=== PATIENT | male | born 1960 | race Caucasian/White ===

== ENCOUNTER → 2022-12-02 13:52 | Outpatient (REF) | payer OTHER, SELFPAY ==
--- NOTE | 2022-12-02 13:59 | CA_ITS ---
Transthoracic Echocardiogram Patient (Last, First, Middle): Denis Tubbs, Gender: Male Date of : 1960 Age: 62 Procedure Date: 12/02/2022 Procedure Type: Transthoracic Echocardiogram Location: [facility] Height: 170.18 cm Weight: 52.16 kg BSA: 1.60 m2 Heart Rate: 56 bpm BP: 102 / 60 mmHg Circulating Process Inspector: SB Referring MD: Maria Guadalupe Stephenson MD Document Control Associate: Ross Dawson MD Symptoms: CARDIAC MURMUR R01/ Study Quality: Adequate ECG Rhythm: Bradycardia Conclusions: - 1. Normal systolic function 2. Bicuspid aortic valve with moderate aortic stenosis with mild aortic regurgitation 3. Severe ascending aortic aneurysm 4. Normal RVSP 5. No pericardial effusion. Findings Left Ventricle Normal left ventricular size, thickness, and systolic function. The visually estimated ejection fraction is between 55-60%. Spectral Doppler is indicative of a normal filling pattern. Right Ventricle Normal right ventricular cavity size and systolic function. Atria Both atria are normal in size. There is no evidence of interatrial shunt. Aortic Valve There is a bicuspid aortic valve. There is moderate thickening of the aortic valve. There is moderate aortic valve stenosis. There is mild aortic valve regurgitation. Mitral Valve There is mild anterior mitral leaflet thickening. There is no mitral valve regurgitation. There is no mitral valve stenosis. Pulmonic Valve The pulmonic valve is likely normal. Tricuspid Valve Normal tricuspid valve structure. There is trace tricuspid valve regurgitation. The right ventricular systolic pressure is normal. The right ventricular systolic pressure is 16 mmHg. Normal right atrial pressure. There is no evidence of pulmonary hypertension. Great Vessels The pulmonary artery was not well visualized. There is severe dilatation of the ascending aorta measuring 5.50 cm. Venous The inferior vena cava is normal in size and collapses greater than 50% with inspiration. Pericardium/Pleural There is no evidence of pericardial effusion. Prior Study Comparison No prior study available for comparison. Finding discussed with PCP's office Measurements 2D Linear Measurements IVSd: 0.99 0.6-0.9/0.6-1.0 cm LVIDd: 4.85 3.9-5.3/4.2-5.9 cm LVIDd Index: 3.03 2.4-3.2/2.2-3.1 cm/m2 LVIDs: 3.22 2.0-3.6 cm LVPWd: 0.74 0.7-1.1 cm LA Diam: 3.20 2.7-3.8/3.0-4.0 cm LAIDs Index: 2.00 1.5-2.3 cm/m2 LV Mass: 177.77 67-162/88-224 g LV Mass Index: 111.11 43-95/49-115 g/m2 LVOT Diam: 2.60 3.0+(-)1.3 cm 2D Systolic Function EF 4C: 55.00 >55% EF 2C: 59.40 >55% EF BiP: 55.80 >55% Mitral Valve MV Pk E: 0.56 MV PK A: 0.54 MV Decel Time: 132.00 E/A: 1.00 E'Lateral: 9.14 E'Medial: 5.22 E/E' Med: 10.70 E/E' Lat: 6.10 PHT: 39.00 MVA PHT: 5.64 Decel Kenton: 4.21 Aortic Valve AoV Pk Leonides: 2.63 AoV Mn Leonides: 1.98 AoV VTI: 0.62 AoV Pk Grad: 28.00 Aov Mn Grad: 17.00 ARPITA Cont.VTI: 1.34 AI Pk Leonides: 4.18 AI Kenton: 1.68 LVOT LVOT Pk Leonides: 0.70 LVOT Mn Leonides: 0.48 LVOT VTI: 0.16 LVOT Pk Grad: 2.00 LVOT Mn Grad: 1.00 LVOT Diam: 2.60 LVOT Area: 5.31 Diastolic Function MV Pk E: 0.56 MV Pk A: 0.54 E/A: 1.00 E'Medial: 5.22 E/E' Med: 10.70 E' Laterial: 9.14 E/E' Lat: 6.10 Right Ventricle TAPSE (mm): 15.10 TVS' Leonides: 7.62 Tricuspid Valve TR Pk Leonides: 1.81 TR Pk Grad: 13.00 RA Press: 3.00 RVSP: 16.00 Great Vessels Aorta Sinus of Valsalva: 4.30 2.0-3.5 cm Ao Asc: 5.50 2.1-3.4 cm Ao Arch: 2.60 Pulmonary Veins Pulm Vein S/D 2.10 Pulmonary Valve PV Pk Leonides: 0.83 Peak PV Grad: 3.00 Updated in Other Vendor System with Status of Final Ross Dawson MD electronically signed on 12/03/2022 12:39:24 PM with status of Final
== END ==
LOC: HO.CARD 13:52
PROVIDERS: PCP Family Medicine; Visit Provider Family Medicine
DX: R01.1 Cardiac murmur, unspecified (principal)
CPT/HCPCS: 93306

== ENCOUNTER → 2022-12-02 13:59 | Outpatient (BNV) | payer OTHER, SELFPAY | PROVIDERS: PCP Family Medicine; Visit Provider Internal Medicine Cardiovascular Disease | DX: I35.2 Nonrheumatic aortic (valve) stenosis with insufficiency (principal) | CPT/HCPCS: 93306 ==

== ENCOUNTER 2022-12-03 12:50 | Outpatient (REF) | payer OTHER, SELFPAY ==
[2022-12-03 14:54] LABS: Hematocrit 38.4 % (42.0-52.0); Hemoglobin 12.9 g/dl (14.0-18.0); Mean Corpuscular HGB Conc 33.6 g/dl (31.0-36.0); Mean Corpuscular Hemoglobin 32.5 pg (27.0-33.0); Mean Corpuscular Volume 96.7 fL (80.0-98.0); Mean Platelet Volume 9.4 fL (9.4-12.4); Platelet Count 217 X10*3/uL (160-400); Red Blood Count 3.97 X10*6/uL (4.60-5.80); Red Cell Distribution Width 12.7 % (11.0-16.0); White Blood Count 4.5 X10*3/uL (4.8-10.8)
[2022-12-03 14:58] LABS: INTERNATIONAL NORM RATIO 0.9 (0.9-1.1); Prothrombin Time 11.1 SEC (11.1-13.3)
[2022-12-03 16:12] LABS: Anion Gap 17 (12-20); Blood Urea Nitrogen 14 mg/dL (9-16); Carbon Dioxide 26 mmol/L (22-29); Chloride 103 mmol/L (96-108); Estimated Glomerular Filt Rate > 60; Glucose Random 97 mg/dL (60-115); Potassium 4.5 mmol/L (3.3-5.1); Sodium 141 mmol/L (135-145)
== END 2022-12-03 12:51 | disposition home or self-care (01) ==
LOC: HO.LAB 12:50
PROVIDERS: PCP Family Medicine; Visit Provider Internal Medicine Cardiovascular Disease
DX: I71.21 Aneurysm of the ascending aorta, without rupture (principal); Q23.1 Congenital insufficiency of aortic valve
CPT/HCPCS: 36415; 80048; 85027; 85610; 93005; 99202

== ENCOUNTER 2022-12-03 12:50 | Outpatient (AMB) | payer OTHER, SELFPAY ==
[2022-12-03 12:58] VITALS: BP 110/74; PULSE 65; BMI 17.6
--- NOTE | 2022-12-03 12:58 | A.OFFVIS_ITS ---
Intake Vital Signs 12/03/22 12:58 Height 5 ft 7 in Weight 112 lb 6.972 oz BMI 17.6 BP 110/74 Blood Pressure Location Lt brachial Pulse 65 Intake Visit Reasons: new abnormal echo with ekg Intake Note: New patient abnormal echo with ekg feeling good Clinical Laboratory Technician Required: No Allergies No Known Allergies Allergy (Verified 12/03/22 13:11) Medication List - Last Reconciled 12/03/22 by Ross Dawson MD aspirin (Ecotrin Low Strength) 81 mg PO DAILY Bacillus coagulans (Probiotic (B. coagulans)) cells PO cholecalciferol (vitamin D3) 50 mcg PO DAILY diphenhydramine HCl (NightTime Sleep Aid (diphenhydramine)) 25 mg PO BEDTIME PRN lysine (L-Lysine) 500 mg PO DAILY multivitamin 1 tab PO DAILY valerian root 500 mg PO BEDTIME PRN HPI HPI Comments History of Present Illness Details Thank you for referring Ab in cardiology consultation today for a scending aortic aneurysm noted by echocardiogram from yesterday. He is accompanied by his . Patient recently was referred for an echocardiogram as an outpatient for noted systolic murmur. Echocardiogram was consistent with severe dilated ascending aorta at 5.5 cm bicuspid aortic valve with moderate aortic stenosis and mild aortic regurgitation. He was referred here for further evaluation management. He is very active and denies any cardiac symptoms. He has never had any prior cardiac issues. He said he is known to have a murmur since his childhood. He denies any symptoms of exertional chest pain or shortness of breath. Denies any symptoms of palpitations, lightheadedness, syncope. [facility] Medical History Ascending aortic aneurysm Bicuspid aortic valve Surgical History History of photorefractive keratectomy (PRK) Hx of hernia repair Shoulder pain with history of repair of rotator cuff Family History Father Cancer Alzheimer disease Mother Stroke Paternal Grandmother CAD (coronary artery disease) Social History Patient Tobacco Use Status: Never used Tobacco Review of Systems Const Denies chills, Denies daytime sleepiness, Denies fatigue, Denies fever(s), Denies frequent falls, Denies poor appetite, Denies snoring, Denies stops breathing during sleep, Denies weakness, Denies weight gain and Denies weight loss Eyes Denies loss of vision ENT Denies dizziness and Denies hearing loss Card Denies chest pain, Denies claudication, Denies leg edema, Denies lightheadedness, Denies palpitations, Denies dyspnea, Denies dyspnea on exertion and Denies orthopnea Resp Denies cough, Denies excessive phlegm production, Denies dyspnea, Denies dyspnea on exertion, Denies snoring and Denies wheezing GI Denies abdominal pain, Denies hematochezia, Denies change in bowel habits, Denies nausea and Denies vomiting Denies dysuria and Denies urinary frequency Musc Denies arthralgias, Denies muscle weakness, Denies numbness and Denies other (frequent falls) Skin/Breast Denies nail changes and Denies rash Neuro Denies Abnormal speech present, Denies dizziness, Denies frequent falls, Denies loss of vision, Denies memory loss, Denies numbness and Denies weakness Psych Denies depression and Denies memory loss Endo Denies fatigue and Denies palpitations Berto/Lymph Reports easy bruising and Reports other (anemia) Aller/Immun Denies wheezing Physical Exam Vital Signs: Last Vital Signs Pulse 65 12/03/22 12:58 BP 110/74 12/03/22 12:58 BMI result Body Mass Index 17.6 Const General: cooperative, comfortable, no acute distress, alert, awake and Physically active Nutritional Appearance: thin Orientation/consciousness: patient oriented x3 Limitations: no limitations HEENT Head: Yes normocephalic and Yes atraumatic Neck Neck: Yes trachea midline, Yes supple and Yes no JVD Resp Effort & Inspection: normal respiratory effort Auscultation: clear to auscultation bilaterally Cardio Jugular venous distension: no JVD Palpation: normal PMI Rate: regular rate Rhythm: regular rhythm Heart sounds: S1 normal heart sound present, S2 normal heart sound present, Clicking heart sound present, no gallops and Murmur heart sound present systolic mid, decrescendo and crescendo GI Auscultation: normal bowel sounds Skin General skin exam: no rashes or lesions noted Neuro General: patient oriented x3 and no focal motor deficits Speech: No Abnormal speech present Extrem General: Yes no clubbing, cyanosis or edema Psych Appearance: grossly normal Office Procedures EKG Details: EKG shows normal sinus rhythm with voltage criteria for LVH 58835-[id number], Complete Assessment & Plan Assessment & Plan (1) Ascending aortic aneurysm: Code(s): I71.21 - Aneurysm of the ascending aorta, without rupture Plan: Large ascending aortic aneurysm which is at the size to repair surgically. This was discussed with him. Most likely etiology is bicuspid aortic valve. This was discussed with him. Need for surgery to reduce risk of acute aortic syndrome and related morbidity mortality was discussed with him. Approach was discussed with him. Will require cardiac catheterization prior to this approach we will recall so require concomitant aortic valve replacement. See below. We discussed the risks, benefits, alternatives of procedure. Understands agrees. Refer him to [facility] to . Meanwhile will start him on low-dose aspirin therapy as well as Toprol-XL 25 mg daily. Advised to avoid sudden strenuous isometric exercise. He understands and agrees. (2) Bicuspid aortic valve: Code(s): Q23.1 - Congenital insufficiency of aortic valve Plan: Bicuspid aortic valve with moderate aortic stenosis and mild aortic regurgitation. Given need for ascending aortic aneurysm repair, will require concomitant aortic valve replacement. We discussed options including bioprosthetic aortic valve mechanical aortic valve. Patient with before bioprosthetic aortic valve as it would not require long-term oral anticoagulation therapy. Will follow up in the clinic after cardiac catheterization. Thank you for allowing me to partake in his care Orders: Orders Basic Metabolic Panel Today I71.21 - Aneurysm of the ascending aorta, without rupture Prothrombin Time INR Today I71.21 - Aneurysm of the ascending aorta, without rupture Complete Blood Count no Diff Today I71.21 - Aneurysm of the ascending aorta, without rupture Cardiac Cath LT Diagnostic 1 Week I71.21 - Aneurysm of the ascending aorta, without rupture Medications: New aspirin (Ecotrin Low Strength) 81 mg PO DAILY 30 tabs 1RF I71.21 - Aneurysm of the ascending aorta, without rupture Coding Level of Care Code New Pt Level 4 (35611) Diagnoses Ascending aortic aneurysm I71.21 Bicuspid aortic valve Q23.1 CPT Codes EKG - CPT: 93607-[id number], Complete ([id number])
== END 2022-12-03 13:42 | disposition home or self-care (01) ==
PROVIDERS: PCP Family Medicine; Visit Provider Internal Medicine Cardiovascular Disease
DX: I71.21 Aneurysm of the ascending aorta, without rupture (principal); Q23.1 Congenital insufficiency of aortic valve
CPT/HCPCS: 93010; 99204

== ENCOUNTER → 2022-12-14 23:59 | Outpatient (BNV) | payer OTHER, SELFPAY | PROVIDERS: PCP Family Medicine; Visit Provider Internal Medicine Cardiovascular Disease | DX: I35.0 Nonrheumatic aortic (valve) stenosis (principal); I71.21 Aneurysm of the ascending aorta, without rupture | CPT/HCPCS: 93458; 99152 ==

== ENCOUNTER 2022-12-28 08:43 | Outpatient (AMB) | payer OTHER, SELFPAY ==
--- NOTE | 2022-12-28 08:45 | MHC.OFFVIS ---
Intake Vital Signs 12/28/22 08:48 Height 5 ft 7 in Weight 125 lb 10.616 oz BMI 19.7 BP 116/70 Blood Pressure Location Lt brachial Position Sitting Pulse 56 Intake Visit Reasons: Follow up post cardiac cath Intake Note: Follow-up post Cardiac Cath Aircraft Layout Worker Required: No Shuttle Final Inspector: Shuttle Final Inspector Present Accompanied by: Spouse Allergies No Known Allergies Allergy (Verified 12/28/22 08:46) Medication List - Last Reconciled 12/28/22 by Ainsley Nielsen NP-C aspirin (Ecotrin Low Strength) 81 mg PO DAILY Bacillus coagulans (Probiotic (B. coagulans)) cells PO cholecalciferol (vitamin D3) 50 mcg PO DAILY diphenhydramine HCl (NightTime Sleep Aid (diphenhydramine)) 25 mg PO BEDTIME PRN lysine (L-Lysine) 500 mg PO DAILY metoprolol succinate ER (Toprol XL) 25 mg PO DAILY multivitamin 1 tab PO DAILY valerian root 500 mg PO BEDTIME PRN HPI Follow up post cardiac cath HPI Details Denis is a 62-year-old male with recent finding of bicuspid aortic valve, aortic stenosis, dilated ascending aorta 5.5 cm who recently underwent a cardiac catheterization for further evaluation prior to surgical intervention. Today he reports he is feeling well overall. He has no concerning symptoms. He denies chest discomfort at rest or with activity. No shortness of breath, palpitations, presyncope, syncope, PND, orthopnea or edema. He is doing only light physical activity. Right radial catheterization site is feeling well. is present. He was seen at [facility] yesterday and will be planning surgery in January. [facility] Medical History (Updated 12/28/22 @ 11:20 by MARISABEL Mann) Bicuspid aortic valve Ascending aortic aneurysm Surgical History (Updated 12/28/22 @ 10:49 by COY MannC) Shoulder pain with history of repair of rotator cuff History of photorefractive keratectomy (PRK) Hx of hernia repair Family History Father Cancer Alzheimer disease Mother Stroke Paternal Grandmother CAD (coronary artery disease) Social History Patient Tobacco Use Status: Never used Tobacco Review of Systems Const All systems reviewed & are unremarkable except as noted in HPI and below Denies chills, Denies fatigue, Denies fever(s), Denies frequent falls, Denies weakness, Denies weight gain and Denies weight loss ENT Denies dizziness Card Denies chest pain, Denies leg edema, Denies lightheadedness, Denies palpitations, Denies dyspnea, Denies dyspnea on exertion, Denies orthopnea and Denies other (loss of consciousness) Resp Denies cough, Denies dyspnea and Denies dyspnea on exertion GI Denies hematochezia and Denies change in stool character Musc Details: right radial cath site feels good Denies abnormal gait, Denies muscle weakness, Denies numbness, Denies radiating pain into limb and Denies tingling Neuro Denies abnormal gait, Denies dizziness, Denies frequent falls, Denies numbness, Denies tingling and Denies weakness Endo Denies fatigue and Denies palpitations Physical Exam Vital Signs: Last Vital Signs Pulse 56 12/28/22 08:48 BP 116/70 12/28/22 08:48 BMI result Body Mass Index 19.7 Const General: cooperative, healthy appearing, comfortable and no acute distress Orientation/consciousness: patient oriented x3 Neck Neck: Yes normal visual inspection Resp Effort & Inspection: normal respiratory effort Auscultation: clear to auscultation bilaterally, no crackles, no rales, no rhonchi and no wheezes Cardio Jugular venous distension: no JVD Rate: regular rate Rhythm: regular rhythm Heart sounds: S1 normal heart sound present, S2 normal heart sound present, no gallops, no murmurs and no rubs Neuro General: patient oriented x3 Extrem Other: right radial cath site with easily palpable radial pulse, hand assessment normal General: Yes normal to inspection and No no pedal edema Psych Appearance: grossly normal Mental Status: mental status grossly normal Speech and movement: Normal speech and movement present Assessment & Plan Assessment & Plan (1) Ascending aortic aneurysm: Code(s): I71.21 - Aneurysm of the ascending aorta, without rupture Qualifiers: Presence of rupture: without rupture Qualified Code(s): I71.21 - Aneurysm of the ascending aorta, without rupture Plan: Recent finding of heart murmur. Echocardiogram done on 12/02/2022 showing EF 55-60%, bicuspid aortic valve with moderate aortic stenosis and mild aortic regurgitation, severe ascending aortic aneurysm 5.5 cm, normal RVSP. This was new finding for him. He was put on metoprolol for blood pressure control. He underwent cardiac catheterization on 12/14/2022 showing normal coronary arteries. He has been referred to Dr. Wolff at [facility]. He saw 1 of his associates yesterday and surgery will be performed by her in January. He does not know the date as of yet. He has been instructed on light physical activity until that time. Instructed to seek emergency medical care if he develops any chest or upper back discomfort. Continue metoprolol. Cardiology follow-up in our office 2 months which should be approximally 1 month post surgery. (2) S/P cardiac cath: Comment: 12/14/2022 showing normal coronary arteries Code(s): Z98.890 - Other specified postprocedural states Plan: Right radial catheterization site well healed (3) Bicuspid aortic valve: Code(s): Q23.1 - Congenital insufficiency of aortic valve Coding Level of Care Code Est Pt Level 3 (27730) Diagnoses Aneurysm of ascending aorta without rupture I71.21 Presence of rupture: without rupture S/P cardiac cath Z98.890 Bicuspid aortic valve Q23.1 Time Spent (min) 24
[2022-12-28 08:48] VITALS: BP 116/70; PULSE 56; BMI 19.7
== END 2022-12-28 09:43 | disposition home or self-care (01) ==
PROVIDERS: PCP Family Medicine; Visit Provider Nurse Practitioner Family
DX: I71.21 Aneurysm of the ascending aorta, without rupture (principal); Z98.890 Other specified postprocedural states; Q23.1 Congenital insufficiency of aortic valve
CPT/HCPCS: 99213

== ENCOUNTER → 2022-12-28 08:43 | Outpatient (BNVA) | payer OTHER, SELFPAY | PROVIDERS: PCP Family Medicine; Visit Provider Nurse Practitioner Family | DX: I71.21 Aneurysm of the ascending aorta, without rupture (principal); Q23.1 Congenital insufficiency of aortic valve; Z98.890 Other specified postprocedural states | CPT/HCPCS: 99212 ==

== ENCOUNTER 2022-12-31 15:50 | Outpatient (REF) | payer OTHER, SELFPAY ==
--- NOTE | ~2022-12-31 | CT_ITS ---
EXAMINATION: CT ANGIOGRAM CHEST CLINICAL INFORMATION: Ascending aortic aneurysm COMPARISON: None available. TECHNIQUE: Multiple axial images were obtained through the chest after the administration of 85 mL of Omnipaque 350 intravenous contrast. Extensive vascular post-processing including two-dimensional and three-dimensional reformatted images were created and reviewed on an independent workstation. This CT examination was performed using dose optimization techniques as appropriate, variously including the following: *Automated exposure control *Adjustment of mA and/or kV according to patient size (this includes techniques or standardized protocols for targeted exams where dose is matched to indication/reason for exam; i.e. extremities or head) *Use of iterative reconstruction technique DLP: 101 mGy-cm FINDINGS: Heart/Aorta: The heart is globally normal in size. There is a bicuspid partially calcified aortic valve. This study is not cardiac gated, however approximate aortic measurements are as follows: Cusps: 4.6 x 4.1 cm Mid ascending aorta: 5.5 x 5.2 cm Aortic arch: 2.5 x 2.5cm Descending thoracic aorta 2.3 x 2.2 cm Other Cardiovascular: The main pulmonary artery is normal in caliber. The well opacified portions of the pulmonary arterial system are patent. There is no pericardial effusion or pericardial thickening. Mediastinum/Maggy: There are no pathologically enlarged mediastinal or hilar lymph nodes. Pleura: The pleural surfaces are normal bilaterally. There is no pleural effusion. There is no pneumothorax. Lungs: The lung parenchyma is normal bilaterally. There is no pulmonary parenchymal mass, consolidation, ground-glass attenuation, or discrete suspicious pulmonary nodule. Airways: The central airways are patent. The peripheral airways are normal. There is no bronchiectasis. Upper Abdomen: The incompletely imaged upper abdomen is unremarkable. Musculoskeletal: There is no aggressive osseous lesion. The structures of the chest wall, including the bones, are normal for age. CT/CT angio chest aorta IMPRESSION: 1. Ascending aortic aneurysm measuring 5.5 cm. 2. Partially calcified bicuspid aortic valve. Findings were discussed with Dr. Dawson at 4:58pm on 12/31/22.
[2022-12-31] MEDS: iohexoL 350 MG/ML 100 ML INFUS..BTL 85 ML IV (16:36)
== END 2022-12-31 15:51 | disposition home or self-care (01) ==
LOC: HO.CT 15:50
PROVIDERS: PCP Family Medicine; Visit Provider Internal Medicine Cardiovascular Disease
DX: I71.21 Aneurysm of the ascending aorta, without rupture (principal)
CPT/HCPCS: 71275; Q9967

== ENCOUNTER 2023-02-02 11:46 | Outpatient (AMB) | payer OTHER, SELFPAY ==
--- NOTE | 2023-02-02 12:16 | A.OFFVIS_ITS ---
Intake Vital Signs 02/02/23 12:17 Height 5 ft 7 in Weight 150 lb BMI 23.5 BP 100/66 Blood Pressure Location Lt brachial Position Sitting Pulse 97 Intake Visit Reasons: ekg Intake Note: Follow-up ? afib with ekg has been having some fluttering Rn Community [facility] Required: No Turner Splitter Machine Operator: Turner Splitter Machine Operator Present Accompanied by: Spouse Allergies No Known Allergies Allergy (Verified 12/28/22 08:46) Medication List - Last Reconciled 02/02/23 by Ross Dawson MD amiodarone 200 mg PO DAILY cholecalciferol (vitamin D3) 50 mcg PO DAILY folic acid 1 mg PO DAILY metoprolol succinate ER (Toprol XL) 12.5 mg PO DAILY multivitamin 1 tab PO DAILY HPI HPI Comments History of Present Illness Details Ab comes for an urgent follow-up visit. About 2 weeks ago he underwent ascending aortic aneurysm repair along with aortic valve replacement for large aneurysm with underlying bicuspid aortic valve and aortic stenosis. He has done well. Postoperative had developed atrial fibrillation in the hospital and subsequently started on amiodarone. He also developed collapse of his left long which is improved now. Still has mild cough. Last night while resting he suddenly notice palpitation irregular heartbeat, bisected beat confirmed to be rapid heart rate consistent with atrial fibrillation. Symptoms persisted this morning. He call his surgeon's office and he was advised to come here for EKG. EKG confirms presence of atrial fibrillation with rapid ventricular response. He has had trouble with higher dose of metoprolol with low blood pressure. However blood pressure this morning is 100/66. He denies any lightheadedness, syncope. Denies any heart failure symptoms. Currently only on aspirin therapy. He has been taking amiodarone 200 mg daily. [facility] Medical History (Updated 02/02/23 @ 12:51 by Ross Dawson MD) Bicuspid aortic valve Ascending aortic aneurysm Surgical History (Updated 02/02/23 @ 12:51 by Ross Dawson MD) Status post aortic valve replacement Status post ascending aortic replacement Shoulder pain with history of repair of rotator cuff History of photorefractive keratectomy (PRK) Hx of hernia repair Family History Father Cancer Alzheimer disease Mother Stroke Paternal Grandmother CAD (coronary artery disease) Social History Patient Tobacco Use Status: Never used Tobacco Review of Systems Const Denies chills, Denies fatigue, Denies fever(s), Denies frequent falls, Denies weakness, Denies weight gain and Denies weight loss ENT Denies dizziness Card Denies chest pain, Denies leg edema, Denies lightheadedness, Denies palpitations, Denies dyspnea, Denies dyspnea on exertion, Denies orthopnea and Denies other (loss of consciousness) Resp Denies cough, Denies dyspnea and Denies dyspnea on exertion GI Denies hematochezia and Denies change in stool character Musc Denies abnormal gait, Denies muscle weakness, Denies numbness, Denies radiating pain into limb and Denies tingling Neuro Denies abnormal gait, Denies dizziness, Denies frequent falls, Denies numbness, Denies tingling and Denies weakness Endo Denies fatigue and Denies palpitations Physical Exam Vital Signs: Last Vital Signs Pulse 97 02/02/23 12:17 BP 100/66 02/02/23 12:17 BMI result Body Mass Index 23.5 Const General: cooperative, healthy appearing, comfortable and no acute distress Nutritional Appearance: thin Orientation/consciousness: patient oriented x3 Neck Neck: Yes normal visual inspection Chest Chest palpation & inspection: other (Well-healed sternotomy scar) Resp Effort & Inspection: normal respiratory effort Auscultation: clear to auscultation bilaterally, no crackles, no rales, no rhonchi and no wheezes Cardio Jugular venous distension: no JVD Rate: tachycardic Rhythm: abnormal rhythm irregularly irregular Heart sounds: S1 normal heart sound present and S2 normal heart sound present Neuro General: patient oriented x3 Extrem Other: right radial cath site with easily palpable radial pulse, hand assessment normal General: Yes normal to inspection and No no pedal edema Psych Appearance: grossly normal Mental Status: mental status grossly normal Speech and movement: Normal speech and movement present Office Procedures EKG Details: EKG shows atrial flutter with variable conduction with nonspecific ST T wave changes [id number], Complete Assessment & Plan Assessment & Plan (1) Atrial fibrillation: Code(s): I48.91 - Unspecified atrial fibrillation Plan: Patient with recurrent atrial fibrillation/flutter post open-heart surgery. Most likely due to pericardial inflammation although this is unusual. Patient had atrial fibrillation in the hospital post surgery and converted and was started on amiodarone for rhythm control although has recurrent atrial fibrillation. There is a risk of intracardiac thrombus given his recurrent atrial fibrillation. Will need MATY guided cardioversion. Meanwhile will try rate control with increase Toprol-XL to 12.5 mg b.i.d. given his low blood pressure. Advised to increase fluid and salt intake. Advised to monitor blood pressure at home. Advised to seek emergency care the sudden change in symptoms. Will start him on Eliquis 5 mg b.i.d. for anticoagulation. Risks, benefits, alternatives to MATY and cardioversion were discussed in details. He understands and agrees. (2) Status post aortic valve replacement: Comment: 27 mm bioprosthetic Inspris Code(s): Z95.2 - Presence of prosthetic heart valve Plan: Status post bioprosthetic aortic valve replacement for bicuspid aortic valve and stenosis. Doing well from that perspective. Follow-up echocardiogram after cardioversion. Continue Eliquis for now SBE prophylaxis as per ACC/aha guidelines. (3) Status post ascending aortic replacement: Comment: 32 mm Dacron graft 01/18/23 Code(s): Z95.828 - Presence of other vascular implants and grafts Plan: Status post ascending aortic repair for ascending aortic aneurysm related to bicuspid aortic valve. Follow-up echocardiogram in the near future to establish baseline. Will follow up in the clinic. Medications: New apixaban (Eliquis) 5 mg PO BID 60 tabs 2RF Changed From metoprolol succinate ER (Toprol XL) 12.5 mg PO DAILY I71.21 - Aneurysm of the ascending aorta, without rupture To metoprolol succinate ER (Toprol XL) 12.5 mg PO BID I71.21 - Aneurysm of the ascending aorta, without rupture Coding Level of Care Code Est Pt Level 4 (05241) Diagnoses Atrial fibrillation I48.91 Status post aortic valve replacement Z95.2 Status post ascending aortic replacement Z95.828 CPT Codes EKG - CPT: 40794-[id number], Complete ([id number])
[2023-02-02 12:17] VITALS: BP 100/66; PULSE 97; BMI 23.5
== END 2023-02-02 12:50 | disposition home or self-care (01) ==
PROVIDERS: PCP Family Medicine; Visit Provider Internal Medicine Cardiovascular Disease
DX: I48.91 Unspecified atrial fibrillation (principal); Z95.2 Presence of prosthetic heart valve; Z95.828 Presence of other vascular implants and grafts
CPT/HCPCS: 93010; 99214

== ENCOUNTER → 2023-02-02 11:46 | Outpatient (BNVA) | payer OTHER, SELFPAY | PROVIDERS: PCP Family Medicine; Visit Provider Internal Medicine Cardiovascular Disease | DX: I48.91 Unspecified atrial fibrillation (principal); Z95.2 Presence of prosthetic heart valve; Z79.01 Long term (current) use of anticoagulants; Z79.899 Other long term (current) drug therapy | CPT/HCPCS: 93005; 99212 ==

== ENCOUNTER 2023-02-04 08:57 | Outpatient (AMB) | payer OTHER, SELFPAY ==
--- NOTE | 2023-02-04 09:44 | AM.OFFVISNUR ---
Intake Vital Signs 02/04/23 09:45 BP 112/80 Blood Pressure Location Lt brachial Position Sitting Comment This mornings BP at home Intake Visit Reasons: ekg to confirm no afib Intake Note: Pt here for EKG. Was in recent afib but felt like he converted. Feels good. No complaints. Wireline Supervisor Required: No Accompanied by: Spouse Allergies No Known Allergies Allergy (Verified 12/28/22 08:46) Followed by:: Dr. Dawson Nursing Note EKG completed. EKG auto-reading sinus rhythm at 61 bpm. EKG reviewed and signed by Dr. Dawson. Home BP readings holding steady. Continue amiodarone, Eliquis, and metoprolol. Cancel MATY CVR. (Hamida Navarro cxd this per Dr. Dawson and pt is to get Holter placed today). Office Procedures EKG [id number], Complete Coding Level of Care Code Est Pt Level 1 (84186) CPT Codes EKG - CPT: 34425-[id number], Complete ([id number]) Time Spent (min) 20 Comment EKG, Medication Reconciliation, Documentation, Education, f/up, holter and Cx MATY & CVR
[2023-02-04 09:45] VITALS: BP 112/80
== END 2023-02-04 09:46 | disposition home or self-care (01) ==
PROVIDERS: PCP Family Medicine; Visit Provider Internal Medicine Cardiovascular Disease
DX: I48.91 Unspecified atrial fibrillation (principal)
CPT/HCPCS: 93010; 93244

== ENCOUNTER → 2023-02-04 08:57 | Outpatient (BNVA) | payer OTHER, SELFPAY | PROVIDERS: PCP Family Medicine; Visit Provider Internal Medicine Cardiovascular Disease | DX: R94.31 Abnormal electrocardiogram [ECG] [EKG] (principal); Z79.01 Long term (current) use of anticoagulants | CPT/HCPCS: 93005 ==

== ENCOUNTER → 2023-02-04 09:54 | Outpatient (REF) | payer OTHER, SELFPAY ==
--- NOTE | 2023-02-04 10:01 | HM_ITS ---
Conclusion: 1. Patient was monitored for total period of 3 days and 7 hours 2. Baseline was normal sinus rhythm with intermittent atrial fibrillation with total burden of atrial fibrillation 29 0.3% of the time lasting for 21 hours with fastest heart of 137 beats per minute 3. No significant pauses noted 4. No significant ectopy noted 5. Patient reported events correlated with atrial fibrillation MTDD
== END ==
LOC: HO.CARD 09:54
PROVIDERS: PCP Family Medicine; Visit Provider Internal Medicine Cardiovascular Disease
DX: I71.21 Aneurysm of the ascending aorta, without rupture (principal); Z95.828 Presence of other vascular implants and grafts
CPT/HCPCS: 93242

== ENCOUNTER → 2023-02-17 12:53 | Outpatient (REF) | payer OTHER, SELFPAY ==
--- NOTE | 2023-02-17 12:56 | CA_ITS ---
Transthoracic Echocardiogram Patient (Last, First, Middle): Denis Tubbs, Gender: Male Date of : 1960 Age: 62 Procedure Date: 02/17/2023 Procedure Type: Transthoracic Echocardiogram Location: OP Height: 170.18 cm Weight: 52.16 kg BSA: 1.60 m2 Heart Rate: bpm BP: 109 / 69 mmHg Production Supervisor Off Shift: TAY Referring MD: Ross Dawson MD Symptoms: I71.21 - Aneurysm of the ascending aorta, without rupture Study Quality: Adequate Conclusions: - The left ventricular systolic function is normal. The calculated ejection fraction is 60% by biplane method. - Moderate biatrial enlargement. - A bioprosthetic aortic valve is present. The prosthetic aortic valve appears to be functioning normally. - There is severe mitral valve regurgitation. The mitral regurgitation jet is directed posteriorly. Possible flail anterior leaflet in some views. - Recommend a MATY. Findings Left Ventricle Normal left ventricular cavity size. There is normal left ventricular wall thickness. The left ventricular systolic function is normal. The calculated ejection fraction is 60% by biplane method. There is no evidence of regional wall motion abnormalities. Diastolic function is indeterminate on the basis of available data. LV peak GLS -18%. Right Ventricle Mildly increased right ventricular cavity size. There is mildly decreased right ventricular systolic function. Atria Moderate biatrial enlargement. Aortic Valve A bioprosthetic aortic valve is present. The prosthetic aortic valve appears to be functioning normally. There is no aortic valve regurgitation. Mitral Valve There is severe mitral valve regurgitation. The mitral regurgitation jet is directed posteriorly. There is no mitral valve stenosis. Possible flail anterior leaflet in some views. Pulmonic Valve The pulmonic valve is likely normal. There is mild pulmonic valve regurgitation. Tricuspid Valve Normal tricuspid valve structure. There is mild tricuspid valve regurgitation. There is no evidence of pulmonary hypertension. Great Vessels The asc aorta is normal in size. Venous The inferior vena cava is dilated and collapses less than 50% with inspiration. Pericardium/Pleural There is no evidence of pericardial effusion. Prior Study Comparison Changes noted compared to prior study dated: 12/02/2022. s/p AVR/ascending aortic graft; new mitral regurgitation. Recommendations, Care & Conclusions Recommend a MATY. Measurements 2D Linear Measurements IVSd: 0.90 0.6-0.9/0.6-1.0 cm LVIDd: 4.86 3.9-5.3/4.2-5.9 cm LVIDd Index: 3.04 2.4-3.2/2.2-3.1 cm/m2 LVIDs: 2.65 2.0-3.6 cm LVPWd: 0.91 0.7-1.1 cm LA Diam: 4.30 2.7-3.8/3.0-4.0 cm LAIDs Index: 2.69 1.5-2.3 cm/m2 LV Mass: 189.09 67-162/88-224 g LV Mass Index: 118.18 43-95/49-115 g/m2 LVOT Diam: 2.50 3.0+(-)1.3 cm 2D Systolic Function EF 4C: 62.40 >55% EF 2C: 58.60 >55% EF BiP: 59.60 >55% Mitral Valve MV Pk E: 1.42 MV PK A: 0.36 MV Decel Time: 232.00 E/A: 4.00 E'Medial: 5.98 E/E' Med: 23.70 PHT: 68.00 MVA PHT: 3.24 Decel [place]: 6.11 Aortic Valve AoV Pk Leonides: 1.45 AoV Mn Leonides: 0.92 AoV VTI: 0.28 AoV Pk Grad: 8.00 Aov Mn Grad: 4.00 ARPITA Cont.VTI: 3.60 LVOT LVOT Pk Leonides: 1.04 LVOT Mn Leonides: 0.68 LVOT VTI: 0.21 LVOT Pk Grad: 4.00 LVOT Mn Grad: 2.00 LVOT Diam: 2.50 LVOT Area: 4.91 Diastolic Function MV Pk E: 1.42 MV Pk A: 0.36 E/A: 4.00 E'Medial: 5.98 E/E' Med: 23.70 Right Ventricle TAPSE (mm): 15.10 TVS' Leonides: 8.49 Tricuspid Valve TR Pk Leonides: 2.17 TR Pk Grad: 19.00 RA Press: 15.00 RVSP: 34.00 Great Vessels Aorta Ao Asc: 3.30 2.1-3.4 cm Updated in Other Vendor System with Status of Final Jefferson Hernandez MD electronically signed on 02/17/2023 3:58:15 PM with status of Final
== END ==
LOC: HO.CARD 12:53
PROVIDERS: PCP Family Medicine; Visit Provider Internal Medicine Cardiovascular Disease
DX: I71.21 Aneurysm of the ascending aorta, without rupture (principal); Z95.828 Presence of other vascular implants and grafts
CPT/HCPCS: 93306; 93356

== ENCOUNTER → 2023-02-17 12:56 | Outpatient (BNV) | payer OTHER, SELFPAY | PROVIDERS: PCP Family Medicine; Visit Provider Internal Medicine | DX: I34.0 Nonrheumatic mitral (valve) insufficiency (principal); I36.1 Nonrheumatic tricuspid (valve) insufficiency | CPT/HCPCS: 93306 ==

== ENCOUNTER 2023-02-21 08:13 | Outpatient (AMB) | payer OTHER, SELFPAY ==
[2023-02-21 08:15] VITALS: BP 90/62; PULSE 57; BMI 18.8
--- NOTE | 2023-02-21 08:15 | A.OFFVIS_ITS ---
Intake Vital Signs 02/21/23 08:15 Height 5 ft 7 in Weight 119 lb 14.903 oz BMI 18.8 BP 90/62 Blood Pressure Location Lt brachial Position Sitting Pulse 57 Intake Visit Reasons: fu after echo/ holter Intake Note: f/u after echo/holter Parcel Post Officer Required: No Semiconductor Processing Technician: Semiconductor Processing Technician Present Accompanied by: Significant Other Allergies No Known Allergies Allergy (Verified 02/21/23 08:21) Medication List - Last Reconciled 02/21/23 by Ainsley Nielsen NP-C amiodarone 200 mg PO BID 30 days apixaban (Eliquis) 5 mg PO BID cholecalciferol (vitamin D3) 50 mcg PO DAILY folic acid 1 mg PO DAILY metoprolol succinate ER (Toprol XL) 12.5 mg PO BID multivitamin 1 tab PO DAILY HPI fu after echo/ holter HPI Details Denis is a 62-year-old male with past medical history of bicuspid aortic valve, aortic stenosis, dilated ascending aorta, 5.5 cm who underwent recent bioprosthetic aortic valve replacement, ascending aorta repair. He did have postop AFib then noted to have recurrent atrial fibrillation requiring use anticoagulation and rate control. He recently underwent an echocardiogram and now presents for follow-up. Today he reports that he continues to recover from his surgery. He is not quite at baseline yet. He did go for a walk this past weekend it did have some mild shortness of breath on an incline which was unusual for him. No chest discomfort, presyncope, syncope, falls. He will feel heart palpitations at times. He wears a Fitbit which tells him he is in atrial fibrillation at times. His last known episode of AFib based on his Fitbit was 02/07/2023. No PND, orthopnea or edema. Taking meds as directed. No bleeding issues reported. is present. [facility] Medical History Bicuspid aortic valve Ascending aortic aneurysm Surgical History Status post aortic valve replacement Status post ascending aortic replacement Shoulder pain with history of repair of rotator cuff History of photorefractive keratectomy (PRK) Hx of hernia repair Family History Father Cancer Alzheimer disease Mother Stroke Paternal Grandmother CAD (coronary artery disease) Social History Patient Tobacco Use Status: Never used Tobacco Review of Systems Const All systems reviewed & are unremarkable except as noted in HPI and below ENT Denies dizziness Card Denies chest pain, Denies chest pain at rest, Denies chest pain with activity, Denies rapid heart rate, Denies pedal edema, Denies edema, Denies leg edema, Denies lightheadedness, Denies palpitations, Reports dyspnea, Denies dyspnea on exertion and Denies orthopnea Resp Denies cough, Reports dyspnea and Denies dyspnea on exertion GI Denies hematochezia and Denies change in stool character Musc Denies abnormal gait, Denies limited range of motion, Denies muscle cramps, Denies muscle weakness, Denies numbness, Denies radiating pain into limb, Denies stiffness and Denies tingling Neuro Denies abnormal gait, Denies dizziness, Denies numbness and Denies tingling Endo Denies palpitations Physical Exam Vital Signs: Last Vital Signs Pulse 57 02/21/23 08:15 BP 90/62 02/21/23 08:15 BMI result Body Mass Index 18.8 Const General: cooperative, healthy appearing, comfortable and no acute distress Orientation/consciousness: patient oriented x3 Neck Neck: Yes normal visual inspection Resp Effort & Inspection: normal respiratory effort Auscultation: clear to auscultation bilaterally, no rales, no rhonchi and no wheezes Cardio Jugular venous distension: no JVD Rate: regular rate Rhythm: regular rhythm Heart sounds: S1 normal heart sound present, S2 normal heart sound present, Murmur heart sound present (systolic murmur mitral valve region) and no rubs Neuro General: patient oriented x3 Extrem General: Yes normal to inspection and No no pedal edema Psych Appearance: grossly normal Mental Status: mental status grossly normal Speech and movement: Normal speech and movement present Office Procedures EKG Details: Today, read by me, SR with PACs, nonspecific T wave abn, rate 57 [id number], Complete Assessment & Plan Assessment & Plan (1) Atrial fibrillation: Code(s): I48.91 - Unspecified atrial fibrillation Plan: New or atrial fibrillation. Initially postoperative then noted to have recurrent AFib. Restarted on Eliquis 5 mg b.i.d. for anticoagulation. His blood pressure does run on the low side so low-dose metoprolol was added last visit. A Holter monitor done 02/04/2023 for 3 days showed sinus rhythm with intermittent atrial fibrillation, total burden 29.3% of time, longest episode 21 hours, fastest heart rate 137. At times patient will notice heart palpitations. He does not notice shortness of breath or fatigue with his AFib. He has not had any bleeding issues. Based on his Fitbit his last known AFib was 02/07/2023. An echocardiogram done 02/17/2023 shows EF 60%, moderate biatrial enlargement, bioprosthetic AVR present and functioning normally, severe mitral regurgitation, possible flail anterior leaflet in some views. This has previously been reviewed by Dr. Dawson. Plan is for a transesophageal echocardiogram next week. At this time will continue on current med management with Eliquis and metoprolol. For low blood pressures previously instructed to increase his fluid and salt intake. (2) Mitral regurgitation: Code(s): I34.0 - Nonrheumatic mitral (valve) insufficiency Plan: New finding of severe mitral regurgitation. Transesophageal echocardiogram is being planned. On examination today he has no clinical signs of heart failure. Plan of care to be determined post transesophageal ECHO. Patient is wanting to go to [place] as they are building a house there. Suggested they wait until after this procedure to see what management will be required. At present will put him for 1 month cardiology office visit follow-up. This appointment can be adjusted based on findings of MATY. (3) Status post ascending aortic replacement: Comment: 32 mm Dacron graft 01/18/23 Code(s): Z95.828 - Presence of other vascular implants and grafts (4) Status post aortic valve replacement: Comment: 27 mm bioprosthetic Inspris 01/18/2023 Code(s): Z95.2 - Presence of prosthetic heart valve (5) S/P cardiac cath: Comment: 12/14/2022 showing normal coronary arteries Code(s): Z98.890 - Other specified postprocedural states Coding Level of Care Code Est Pt Level 3 (50172) Diagnoses Atrial fibrillation I48.91 Mitral regurgitation I34.0 Status post ascending aortic replacement Z95.828 Status post aortic valve replacement Z95.2 S/P cardiac cath Z98.890 CPT Codes EKG - CPT: 01411-[id number], Complete ([id number]) Time Spent (min) 26
== END 2023-02-21 09:01 | disposition home or self-care (01) ==
PROVIDERS: PCP Family Medicine; Visit Provider Nurse Practitioner Family
DX: I48.91 Unspecified atrial fibrillation (principal); I34.0 Nonrheumatic mitral (valve) insufficiency; Z95.828 Presence of other vascular implants and grafts; Z95.2 Presence of prosthetic heart valve; Z98.890 Other specified postprocedural states
CPT/HCPCS: 93010; 99213

== ENCOUNTER → 2023-02-21 08:13 | Outpatient (BNVA) | payer OTHER, SELFPAY | PROVIDERS: PCP Family Medicine; Visit Provider Nurse Practitioner Family | DX: I48.91 Unspecified atrial fibrillation (principal); I34.0 Nonrheumatic mitral (valve) insufficiency; Z95.2 Presence of prosthetic heart valve; Z95.828 Presence of other vascular implants and grafts; Z98.890 Other specified postprocedural states; Z79.01 Long term (current) use of anticoagulants | CPT/HCPCS: 93005; 99212 ==

== ENCOUNTER → 2023-03-03 09:24 | Outpatient (BNV) | payer OTHER, SELFPAY | PROVIDERS: PCP Family Medicine; Visit Provider Internal Medicine Cardiovascular Disease | DX: I48.91 Unspecified atrial fibrillation (principal); I34.0 Nonrheumatic mitral (valve) insufficiency | CPT/HCPCS: 93312; 93320; 93325 ==

== ENCOUNTER 2023-03-03 09:34 | Day surgery (SDC) | payer OTHER, SELFPAY ==
--- NOTE | 2023-02-04 08:45 | HO.ANESPROP2 ---
HPI - Anesthesia Eval Consult details Narrative: 62yo M for Transesophageal Echocardiogram, Cardioversion Eliquis for afib [facility] Active Problems Active Problems: All Active Problems (Updated 02/02/23 @ 12:51 by Ross Dawson MD) Atrial fibrillation (Acute) Status post ascending aortic replacement (Acute) Status post aortic valve replacement (Acute) S/P cardiac cath (Acute) Past Medical History Medical History (Updated 02/02/23 @ 12:51 by Ross Dawson MD) Bicuspid aortic valve Ascending aortic aneurysm Family History Family History Father Cancer Alzheimer disease Mother Stroke Paternal Grandmother CAD (coronary artery disease) Surgical History Surgical History (Updated 02/02/23 @ 12:51 by Ross Dawson MD) Status post aortic valve replacement Status post ascending aortic replacement Shoulder pain with history of repair of rotator cuff History of photorefractive keratectomy (PRK) Hx of hernia repair Social History Social History Patient Tobacco Use Status: Never used Tobacco Meds Allergies Allergy/AdvReac Type Severity Reaction Status Date / Time No Known Allergies Allergy Verified 12/28/22 08:46 Home Medications Medication Instructions Recorded Confirmed Last Taken Type cholecalciferol (vitamin D3) 50 50 mcg PO DAILY 12/03/22 02/02/23 Unknown History mcg (2,000 unit) capsule multivitamin 1 tab PO DAILY 12/03/22 02/02/23 Unknown History amiodarone 200 mg tablet 200 mg PO DAILY 02/02/23 02/02/23 Unknown History folic acid 1 mg tablet 1 mg PO DAILY 02/02/23 02/02/23 Unknown History metoprolol succinate 25 mg 12.5 mg PO BID 02/02/23 02/02/23 Unknown History tablet,extended release 24 hr (Toprol XL) Exam Exam Date and Time: February 04, 2023 0845 Pertinent Lab Results Pertinent Lab Results: Laboratory Tests 12/03/22 13:59 WBC 4.5 L Hgb 12.9 L Hct 38.4 L Plt Count 217 Sodium 141 Potassium 4.5 Chloride 103 Carbon Dioxide 26 BUN 14 Creatinine 0.83 Narrative Narrative: ECHO 11/2022 Conclusions: - 1. Normal systolic function 2. Bicuspid aortic valve with moderate aortic stenosis with mild aortic regurgitation 3. Severe ascending aortic aneurysm 4. Normal RVSP 5. No pericardial effusion. EKG 11/2022 normal sinus rhythm with voltage criteria for LVH Assessment and Plan Assessment Anesthesia Assessment: Chart Reviewed
[2023-03-01 07:48] VITALS: BMI 18.6
--- NOTE | 2023-03-02 10:03 | P.CONAN_ITS ---
Documented by User: Dulce Fu NP 03/02/23 10:08 HPI - Anesthesia Eval Consult details Narrative: 62yo M for Transesophageal Echocardiogram Eliquis for afib Per 02/2023 cardiology office visit note: [place] [facility] [place] ascending aortic aneurysm repair along with aortic valve replacement for large aneurysm with underlying bicuspid aortic valve and aortic stenosis. He has done well. Postoperative had developed atrial fibrillation in the hospital and subsequently started on amiodarone. He also developed collapse of his left long which is improved now. [facility] Active Problems Active Problems: All Active Problems (Updated 02/21/23 @ 09:14 by Ainsley Nielsen NP-C) Mitral regurgitation (Acute) Atrial fibrillation (Acute) Status post ascending aortic replacement (Acute) Status post aortic valve replacement (Acute) S/P cardiac cath (Acute) Past Medical History Medical History Bicuspid aortic valve Ascending aortic aneurysm Family History Family History Father Cancer Alzheimer disease Mother Stroke Paternal Grandmother CAD (coronary artery disease) Surgical History Surgical History Status post aortic valve replacement Status post ascending aortic replacement Shoulder pain with history of repair of rotator cuff History of photorefractive keratectomy (PRK) Hx of hernia repair Social History Social History Patient Tobacco Use Status: Never used Tobacco Use of substances other than those prescribed or required for medical reasons: No Are you DNR?: No Advance Directives: No Advance Directives Information Provided: Yes Meds Allergies Allergy/AdvReac Type Severity Reaction Status Date / Time No Known Allergies Allergy Verified 03/03/23 09:43 Home Medications Medication Instructions Recorded Confirmed Last Taken Type cholecalciferol (vitamin D3) 50 50 mcg PO DAILY 12/03/22 03/03/23 Unknown History mcg (2,000 unit) capsule multivitamin 1 tab PO DAILY 12/03/22 03/03/23 Unknown History folic acid 1 mg tablet 1 mg PO DAILY 02/02/23 03/03/23 Unknown History metoprolol succinate 25 mg 12.5 mg PO BID 02/02/23 03/03/23 03/03/23 History tablet,extended release 24 hr (Toprol XL) iron 1 tab PO DAILY 03/03/23 03/03/23 Unknown History Exam Height,Weight and Vital Signs: Height 5 ft 7 in Weight 53.977 kg Pertinent Lab Results Pertinent Lab Results: Laboratory Tests 12/03/22 13:59 WBC 4.5 L Hgb 12.9 L Hct 38.4 L Plt Count 217 Sodium 141 Potassium 4.5 Chloride 103 Carbon Dioxide 26 BUN 14 Creatinine 0.83 Narrative Narrative: EKG 02/2023 SR with PACs, nonspecific T wave abn, rate 57 ECHO 02/2023 Conclusions: - The left ventricular systolic function is normal. The calculated ejection fraction is 60% by biplane method. - Moderate biatrial enlargement. - A bioprosthetic aortic valve is present. The prosthetic aortic valve appears to be functioning normally. - There is severe mitral valve regurgitation. The mitral regurgitation jet is directed posteriorly. Possible flail anterior leaflet in some views. - Recommend a MATY. Assessment and Plan Assessment Anesthesia Assessment: Chart Reviewed Documented by User: Mickey Beach MD 03/03/23 10:44 [facility] Past Medical History Medical History Bicuspid aortic valve Ascending aortic aneurysm Family History Family History Father Cancer Alzheimer disease Mother Stroke Paternal Grandmother CAD (coronary artery disease) Family history of problems with anesthesia: No Surgical History Surgical History Status post aortic valve replacement Status post ascending aortic replacement Shoulder pain with history of repair of rotator cuff History of photorefractive keratectomy (PRK) Hx of hernia repair History of Problems with Anesthesia: No Social History Social History Patient Tobacco Use Status: Never used Tobacco Use of substances other than those prescribed or required for medical reasons: No Are you DNR?: No Advance Directives: No Advance Directives Information Provided: Yes Meds Allergies Allergy/AdvReac Type Severity Reaction Status Date / Time No Known Allergies Allergy Verified 03/03/23 09:43 Home Medications Medication Instructions Recorded Confirmed Last Taken Type cholecalciferol (vitamin D3) 50 50 mcg PO DAILY 12/03/22 03/03/23 Unknown History mcg (2,000 unit) capsule multivitamin 1 tab PO DAILY 12/03/22 03/03/23 Unknown History folic acid 1 mg tablet 1 mg PO DAILY 02/02/23 03/03/23 Unknown History metoprolol succinate 25 mg 12.5 mg PO BID 02/02/23 03/03/23 03/03/23 History tablet,extended release 24 hr (Toprol XL) iron 1 tab PO DAILY 03/03/23 03/03/23 Unknown History Exam Airway Mallampati Class: I TM Dist: >3cm Neck ROM: Full Loose/Missing/Broken Teeth: No Heart: Severe MR Lungs: Ok Assessment and Plan Assessment Anesthesia Assessment: Anesthesia Plan Discussed Final Anesthetic Review Family History of Problems with Anesthesia: No History of Problems with Anesthesia: No NPO: Yes ASA Class: III Final Preanesthetic Review: No Changes in Pt Med Stat, Meds/Allgs Chart Reviewed, Consent Obtained/Reviewed and Anes Risks/Benef Reviewed Patient Risk: Intermediate Procedure Risk: Intermediate Anesthetic Plan Anesthetic Plan: Agree w/ Assess. and Plan and TIVA Disposition: Standard PACU
[2023-03-03] VITALS (8 sets, daily range): BP systolic 80–130; BP diastolic 48–78; PULSE 47–55; RESP 16–20; TEMP 36.7–36.8; O2SAT 94–100; BMI 18.5
--- NOTE | 2023-03-03 09:24 | CA_ITS ---
Transesophageal Echocardiogram Patient (Last, First, Middle): Denis Tubbs, Gender: Male Date of : 1960 Age: 62 Procedure Date: 03/03/2023 Procedure Type: Transesophageal Echocardiogram Location: [facility] Height: 170.18 cm Weight: 53.98 kg BSA: 1.62 m2 Heart Rate: bpm BP: 98 / 62 mmHg Shearing Supervisor: DANO Referring MD: Ross Dawson MD Bicycle Repairman: Ross Dawson MD Symptoms: I48.91 - Unspecified atrial fibrillation Conclusion: ??? 1. At least moderately severe eccentric mitral regurgitation appears to be secondary to partially flail segment of a anterior leaflet of A3 scallop 2. Normal LV ejection fraction 60-65% next 3. No intracardiac thrombi, masses or vegetations 4. Normal ascending aortic repair 5. Normal pericardium Findings Procedure Information Consent was obtained prior to the procedure. Pre MATY oral cavity was checked and revealed mild overcrowding. The adult 3D probe was passed with no difficulty. This was a technically good study. Left Ventricle Normal left ventricular size, thickness, and systolic function. The visually estimated ejection fraction is between 60-65%. Spectral Doppler is indicative of a normal filling pattern. There is no evidence of a mass in the left ventricle. Right Ventricle Normal right ventricular cavity size and systolic function. There is no evidence of mass in the right ventricle. Atria There is no evidence of interatrial shunt. There is no evidence of a patent foramen ovale. There is no evidence of thrombus or mass in the left atrium. the left atrium was identified multiple views. The left upper, right upper and right lower pulmonary vein drain normally into the left atrium. There is no evidence of thrombus or mass in the right atrium. the IVC in SVC drain normally into the right atrium. Aortic Valve Normal aortic valve structure and function. There is no aortic valve stenosis. There is no aortic valve regurgitation. Mitral Valve There is mild posterior mitral leaflet thickening. on the midesophageal view at 0 degree angle appears to be a flail string like structure test to the anterior leaflet which could suggest ruptured chordae. There appears to be partially flail segment of the A3 scallop with wide-based mitral regurgitation jet which helps the atrial surface of the mitral leaflets, visually appears to be moderately severe. Quantitative assessment suggest MR volume of 50 mL. There is also systolic flow reversal in the right upper pulmonary vein consistent with significant mitral regurgitation. Pulmonic Valve The pulmonic valve is likely normal. There is trace pulmonic valve regurgitation. Tricuspid Valve Normal tricuspid valve structure. There is mild tricuspid valve regurgitation. There is no evidence of pulmonary hypertension. Great Vessels The pulmonary artery was not well visualized. The ascending aorta is repaired with the graft and appears to be within normal limits Venous The inferior vena cava was not well visualized. The inferior vena cava is normal in size and collapses greater than 50% with inspiration. Pericardium/Pleural There is no evidence of pericardial effusion. Measurements 2D Linear Measurements LVOT Diam: 2.10 3.0+(-)1.3 cm Mitral Valve MR Vol - PW Dopp: 49.20 MR VTI: 2.46 MR ERO: 20.00 MR Alias Leonides: 0.39 MR RAD: 0.80 Aortic Valve AoV Pk Leonides: 1.16 AoV Mn Leonides: 0.77 AoV VTI: 0.21 AoV Pk Grad: 5.00 Aov Mn Grad: 3.00 ARPITA Cont.VTI: 2.37 LVOT LVOT Pk Leonides: 0.77 LVOT Mn Leonides: 0.51 LVOT VTI: 0.14 LVOT Pk Grad: 2.00 LVOT Mn Grad: 1.00 LVOT Diam: 2.10 LVOT Area: 3.46 Tricuspid Valve TR Pk Leonides: 1.65 TR Pk Grad: 11.00 Updated by Ross Dawson on 11:29 AM with Status of Final Ross Dawson MD electronically signed on 03/26/2023 11:29:18 AM with status of Final
--- NOTE | 2023-03-03 10:38 | PC.NURSE ---
Patient arrived to preop with one hearing aid in left ear. Per Dr. Beach, hearing aid can be left in for OR. OR nurse Anjum joiner.
[2023-03-03] MEDS: Lactated Ringers 1,000 ML 50 ML IVCONT (10:45)
--- NOTE | 2023-03-03 10:55 | MHC.SHP ---
Pre-Procedural Eval Section A Date of Service: 03/03/23 The patient is an INPATIENT: No Changes since office visit: Yes New Medical Problems and Yes Patient answered all questions; No Cold of Flu in the past 2 weeks and No Changes in Medication The History & Physical has been completed within 30 days and I have reviewed it.: Yes Section B Chief Complaint: Unspecified atrial fibrillation Allergies: Allergies Allergy/AdvReac Type Severity Reaction Status Date / Time No Known Allergies Allergy Verified 03/03/23 09:43 Plan I have reviewed the history and physical and performed a pertinent physical examination on my patient. No changes have occurred unless specified. Time Spent With Patient Time: Total time managing care of this patient today ____ minutes.
== END 2023-03-03 13:47 | disposition home or self-care (01) ==
PROVIDERS: PCP Family Medicine; Visit Provider Internal Medicine Cardiovascular Disease
PROC: (CPT 93312; principal; 2023-03-03 11:00)
DX: I48.91 Unspecified atrial fibrillation (principal); Z79.01 Long term (current) use of anticoagulants; I34.0 Nonrheumatic mitral (valve) insufficiency; Z95.2 Presence of prosthetic heart valve; Z95.828 Presence of other vascular implants and grafts; I71.21 Aneurysm of the ascending aorta, without rupture; Z79.899 Other long term (current) drug therapy; Z98.890 Other specified postprocedural states
CPT/HCPCS: 93312; J2250; J2704

== ENCOUNTER 2023-11-15 14:16 | Outpatient (AMB) | payer OTHER, SELFPAY ==
--- NOTE | 2023-11-15 14:17 | MHC.OFFVIS ---
Intake Visit Reasons: [facility] post op Intake Note: [facility] post cardiac surgery Director Of Physical Therapy Required: No Allergies No Known Allergies Allergy (Verified 03/03/23 09:43) HPI Comments Details: Ab is here for a [id number] visit post mitral valve repair that was done at [facility] for severe mitral regurgitation. He also underwent a concomitant cryoablation procedure. Currently doing well. Says wound is healing well still has some sensitivity at the upper sternotomy site. However he is got back to his functionality. Has been seen by [facility]NA and needs visiting nurse services for couple more weeks. Plan to traveled to [place] after that and be in [place] for the next 10 months. Had a postoperative echocardiogram at [facility], do not see the report but was told that his mitral valve repair looks good. [facility] Medical History Bicuspid aortic valve Ascending aortic aneurysm Surgical History S/P MVR (mitral valve repair) Status post aortic valve replacement Status post ascending aortic replacement Shoulder pain with history of repair of rotator cuff History of photorefractive keratectomy (PRK) Hx of hernia repair Family History Father Cancer Alzheimer disease Mother Stroke Paternal Grandmother CAD (coronary artery disease) Social History Patient Tobacco Use Status: Never used Tobacco Review of Systems Const Denies chills, Denies fatigue, Denies fever(s), Denies frequent falls, Denies weakness, Denies weight gain and Denies weight loss ENT Denies dizziness Card Denies chest pain, Denies leg edema, Denies lightheadedness, Denies palpitations, Denies dyspnea, Denies dyspnea on exertion, Denies orthopnea and Denies other (loss of consciousness) Resp Denies cough, Denies dyspnea and Denies dyspnea on exertion GI Denies hematochezia and Denies change in stool character Musc Denies abnormal gait, Denies muscle weakness, Denies numbness, Denies radiating pain into limb and Denies tingling Neuro Denies abnormal gait, Denies dizziness, Denies frequent falls, Denies numbness, Denies tingling and Denies weakness Endo Denies fatigue and Denies palpitations Physical Exam This is video visit. Clinically appears well. Sternotomy site appear to be well healing Telehealth Telehealth Telehealth Platform: Telephone Location of provider rendering services: practice address Location of patient: address on file Patient Identification confirmed using: Name, : Yes Telehealth method: video Patient verbally consented to treatment: Yes Patient verbally consented to billing insurance company: Yes Patient informed of any privacy concerns related to visit: Yes Assessment & Plan Assessment & Plan (1) S/P MVR (mitral valve repair): Code(s): Z98.890 - Other specified postprocedural states Category: Surgical Plan: Status post mitral valve repair for severe mitral regurgitation happening postoperatively after ascending aortic replacement as well as ascending aortic valve replacement. Status post repair as well as cryo Maze procedure at the time of surgery. Doing well clinically. No symptoms. Will follow-up with Cardiology and echocardiogram in [place] when he gets therapy. Agree with VNA services for now till he was fully mobile and able to go outside without restriction. Will eventually need phase 2 cardiac rehabilitation. SBE prophylaxis as per ACC/[facility] guidelines. Will sign of 4 VNA services. At this point in time will follow if need be, otherwise patient moving to [place] and will have a cardiology follow-up there Coding Level of Care Code Tele Est Pt Level 3 (97456) Diagnoses S/P MVR (mitral valve repair) Z98.890
== END 2023-11-15 15:27 | disposition home or self-care (01) ==
LOC: HO.HCS 14:16
PROVIDERS: PCP Family Medicine; Visit Provider Internal Medicine Cardiovascular Disease
DX: Z98.890 Other specified postprocedural states (principal)
CPT/HCPCS: 99213

== ENCOUNTER → 2023-11-15 14:16 | Outpatient (BNVA) | payer OTHER, SELFPAY | PROVIDERS: PCP Family Medicine; Visit Provider Internal Medicine Cardiovascular Disease ==